=== PATIENT | male | born 1955 | race African-American/Black ===

== ENCOUNTER 2022-08-01 13:38 | Emergency (ER) | payer BC ==
[~2022-08-01] VITALS: Ht 177.8 cm; Wt 81.0 kg
[2022-08-01] MEDS ORDERED: KETOROLAC 15MG/ML VIAL IM ONE (14:15)
[2022-08-01] MEDS ORDERED: KETOROLAC 15MG/ML VIAL IM NR (16:00)
[2022-08-01] MEDS ORDERED: MED4 MT (17:21)
[2022-08-01 17:38] VITALS: BP 139/71
[2022-08-02] MEDS ORDERED: GADOTERATE MEGLUMINE 5 MMOL/10 ML VIAL IV ONE (07:28)
== END 2022-08-01 17:43 | disposition home or self-care (01) ==
LOC: ER 13:38
DX: M48.061 Spinal stenosis, lumbar region without neurogenic claudication (principal); I10 Essential (primary) hypertension; Z98.890 Other specified postprocedural states
CPT/HCPCS: 72148; 73552; 73560; 73721; 93971; 96372; 99284; A9577; J1885